=== PATIENT | male | born 1950 | race Two or more races ===

== ENCOUNTER 2018-03-26 20:44 | Emergency (ER) | payer MEDICARE, MEDICAID ==
[~2018-03-26] VITALS: Ht 167.6 cm; Wt 70.3 kg
[~2018-03-26 20:44] MED LIST: BACTRIM DS TAB1 EAC1 ORAL; DIFLUCAN100 MG ORAL; DIFLUCAN50 MG ORAL; DOXEPIN HCL10 MG ORAL; FLOMAX0.4 MG ORAL; KLONOPIN1 MG ORAL; LEVAQUIN750 MG ORAL; LISINOPRIL5 MG ORAL; MIRTAZAPINE15 M3 ORAL; NEVIRAPINE200 MG PO; PREDNISONE20 MG ORAL; SERTRALINE HCL25 MG ORAL; TESTOSTERO200 MG/12 INJ; TRUVADA 200 MG1 EAC1 ORAL
[2018-03-26] MEDS ORDERED: VIRAMUNE200 MG PO (21:06)
[2018-03-26] MEDS ORDERED: descovy (21:06)
[2018-03-26 21:10] VITALS: BP 102/73
--- NOTE | 2018-03-26 21:10 | NUR ---
ER Nurse Note: Pt came from home c/o shortness of breath and fever. Pt stated breathing is worse at rest, inspiratoy and expiratory; assocaited with 7/10 pain. Lung sounds clear in all lobes. Pt a&ox4, VSS, no signs of distress. ERMD at pt side; will continue to montior.
[2018-03-26] MEDS ORDERED: ZITHROMAX250 MG ORAL (21:25)
[2018-03-26] MEDS ORDERED: IBUPROFEN600 MG ORAL (21:25)
--- NOTE | 2018-03-26 21:26 | Emergency Room Report ---
History of Present Illness General Chief Complaint: Fever Source: Patient Present Illness HPI This is a 67-year-old male with a history of HIV. His CD4 count is around 350 and viral load is undetectable. He presents with chief complaint of congestion and cough for about a week. Increasing fever. Increasing productive sputum. Sputum was darkish in color. No nausea no vomiting. Worse with exertion. Worse with inspiration. Worse with lying flat. [id number] medicine not helping. Allergies: Coded Allergies: No Known Allergies (Unverified , 02/09/13) Patient History Past Medical History: see triage record, old chart reviewed, HIV Past Surgical History: other Pertinent Family History: none Social History: Denies: smoking Immunizations: other Reviewed Nursing Documentation: PMH: Agreed; PSxH: Agreed Nursing Documentation-PMH Past Medical History: No History, Except For Hx Hypertension: Yes Hx COPD: Yes - BRONCHITIS Review of Systems Constitutional: Reports: fever, malaise Eye: Denies: eye pain, blurred vision ENT: Denies: ear pain, nose congestion, throat swelling Respiratory: Reports: cough, shortness of breath, sputum Cardiovascular: Denies: chest pain, palpitations Gastrointestinal: Denies: abdominal pain, diarrhea, nausea, vomiting Musculoskeletal: Denies: back pain, joint pain Skin: Denies: rash Neurological: Denies: headache, numbness Endocrine: Denies: increased thirst, increased urine Hematologic/Lymphatic: Denies: easy bruising All Other Systems: negative except mentioned in HPI Physical Exam Vital Signs Date Time Temp Pulse Resp B/P (MAP) Pulse Ox O2 Delivery O2 Flow Rate FiO2 03/26/18 21:02 98.4 82 16 102/73 97 Room Air vitals normal Sp02 EP Interpretation: reviewed, normal General Appearance: well appearing, no apparent distress, alert Head: normocephalic, atraumatic Eyes: bilateral eye PERRL, bilateral eye EOMI ENT: hearing grossly normal, normal pharynx Neck: full range of motion, supple, no meningismus Respiratory: chest non-tender, lungs clear, decreased breath sounds, other - Coughing with inspiration Cardiovascular #1: regular rate, rhythm, no murmur Gastrointestinal: normal bowel sounds, non tender, no mass, no organomegaly, no bruit, non-distended Musculoskeletal: back normal, gait/station normal, normal range of motion Psychiatric: mood/affect normal Skin: warm/dry Medical Decision Making Diagnostic Impression: Primary Impression: Atypical pneumonia ER Course Patient presents with coughing and fever. Been going on for a week and now with low-grade fever per patient at home. We'll go ahead and treat as atypical pneumonia. He is increased risk because of his HIV status. No evidence of any sepsis, ACS, PE, dissection to name a few. Last Vital Signs Date Time Temp Pulse Resp B/P (MAP) Pulse Ox O2 Delivery O2 Flow Rate FiO2 03/26/18 21:02 98.4 82 16 102/73 97 Room Air Status: unchanged Disposition: HOME, SELF-CARE Condition: Stable Scripts Azithromycin* (ZITHROMAX*) 250 Mg Tablet 250 MG ORAL DAILY, #6 TAB 0 Refills Take two tables once daily for 1 day, then one tablet once daily for 4 days. Prov: Benedict Ordonez MD 03/26/18 Ibuprofen* (MOTRIN*) 600 Mg Tablet 600 MG ORAL THREE TIMES A DAY, #30 TAB 0 Refills Prov: Benedict Ordonez MD 03/26/18 Additional Instructions: Follow-up with your doctor in 7 days. Increase fluids. Return if symptom worsen. Benedict Ordonez MD Mar 26, 2018 21:26
[2018-03-26 21:35] VITALS: BP 102/73
--- NOTE | 2018-03-26 21:35 | NUR ---
ER Nurse Note: Pt seen, treated, medically cleared for discharge by ER MD. Discharge instructions and prescriptions given with repeat verbalziation by pt. Instructed pt to follow up with primary care physcian within one week. Pt a&ox4, VSS, no signs of distress. ID band removed. Pt left with all belongings, stable gait, via own transportation.
== END 2018-03-26 21:35 | disposition home or self-care (01) ==
LOC: EMR 21:17
DX: J18.9 Pneumonia, unspecified organism (principal); I10 Essential (primary) hypertension
CPT/HCPCS: 99282